=== PATIENT | female | born 1950 | race American Indian/Alaskan Native ===

== ENCOUNTER → 2017-03-30 | Outpatient (CLI) | payer MEDICARE | END | disposition home or self-care (01) | LOC: CFH 08:29 | PROVIDERS: ATTEND Physician Assistant Medical | DX: R16.2 Hepatomegaly with splenomegaly, not elsewhere classified (principal) | CPT/HCPCS: 76700 ==

== ENCOUNTER 2021-04-29 15:36 | Emergency (ER) | payer MEDICARE ==
[~2021-04-29] VITALS: Ht 157.5 cm; Wt 76.2 kg
[2021-04-29] MEDS ORDERED: DIPHENHYDRAMINE 25 MG CAPSULE PO ONE (16:30)
[2021-04-29] MEDS ORDERED: FAMOTIDINE 20 MG TABLET PO ONE (16:30)
--- NOTE | 2021-04-29 18:11 | NUR ---
PATIENT WALKED BACK FROM [employer] [facility] WITH CHIEF C/O GENERALIZED BODY RASH. PER PATIENT SHE HAD DENTAL PROCEDURE AND PRESCRIBED CLINDAMYCIN, TOOK FIRST DOSE KELLEY, YESTERDAY DEVELOPED RASH THAT SPREAD THROUGHOUT BODY. TOOK BENADRYL WITH NO RELIEF. UPON ASSESSMENT RASH NOTED TO TRUNK, BILATERAL ARMS, LEGS AND FACE. PATIENT DENIES TONGUE OR THROAT SWELLING. CONNECTED TO MONITOR, VSS, SPOUSE AT BEDSIDE, CALL LIGHT WITHIN REACH.
[2021-04-29] MEDS ORDERED: DIPHENHYDRAMINE 25 MG CAPSULE ONE (18:19)
[2021-04-29] MEDS ORDERED: FAMOTIDINE 20 MG TABLET ONE (18:19)
--- NOTE | 2021-04-29 18:49 | NUR ---
REPORT FROM JOSE FRANCISCO SALINAS
[2021-04-29 19:58] VITALS: BP 154/70
== END 2021-04-29 20:36 | disposition home or self-care (01) ==
LOC: ED 19:46
DX: R21 Rash and other nonspecific skin eruption (principal); T36.8X5A Adverse effect of other systemic antibiotics, initial encounter; E11.9 Type 2 diabetes mellitus without complications; I10 Essential (primary) hypertension
CPT/HCPCS: 99284; J7512; Q0163